=== PATIENT | female | born 1970 ===

== ENCOUNTER 2019-11-19 12:35 | Outpatient (CLI) | payer OTHER ==
--- NOTE | 2019-11-19 13:20 | MRI ---
MRI of thelumbar spine: 11/19/2019 COMPARISON:None HISTORY:Low back pain radiating to the right leg TECHNIQUE: Multiplanar multisequence MR imaging of thelumbar spine without contrast Findings:The sagittal STIR imaging demonstrates no focal area of osseous marrow edema. Conus medullaris terminates at L1-2. T12-L1: Unremarkable L1-2: Unremarkable L2-3: Disc space narrowing with disc desiccation, mild disc bulge, and central annular tear. No signi ficant central canal or neural foraminal stenosis. L3-4: There is disc space narrowing with disc desiccation and mild disc bulge. There is an annular te ar in the foraminal and post foraminal region on the left with a foraminal and post foraminal left-sided disc protrusion. Mild left neural foraminal stenosis. No central canal or right neural for aminal stenosis. Mild left lateral recess stenosis. L3-4: There is disc space narrowing and disc desiccation. There is a disc protrusion in the foraminal and post foraminal region on the left. There is a central annular tear. Mild left neural foraminal stenosis. No central canal or right neural foraminal stenosis. L5-S1: There is disc space narrowing with disc desiccation. There is a central/right paracentral gabriel lar tear with a prominent disc extrusion. Extruded disc material measures 8 mm AP dimension and 1.6 cm craniocaudal dimension with severe associated right lateral recess stenosis. No significant neural foraminal stenosis. The imaged retroperitoneal structures are unremarkable. IMPRESSION:Multilevel degenerative change within the lumbar spine as detailed above, most significant finding being a large disc extrusion in the right paracentral region at the L5-S1 level with severe right lateral recess stenosis.
== END 2019-11-19 12:36 | disposition home or self-care (01) ==
LOC: SCSMRI 12:35
PROVIDERS: ATTEND Chiropractor
DX: M51.16 Intervertebral disc disorders with radiculopathy, lumbar region (principal); M47.26 Other spondylosis with radiculopathy, lumbar region; M48.061 Spinal stenosis, lumbar region without neurogenic claudication
CPT/HCPCS: 72148